=== PATIENT | female | born 1975 ===

== ENCOUNTER 2019-01-25 21:48 | Inpatient (IN) | payer OTHER ==
[~2019-01-25] VITALS: Ht 172.7 cm; Wt 89.8 kg
[2019-01-29] MEDS ORDERED: PANTOPRAZOLE SO40 MG PO (08:09)
[2019-01-29] MEDS ORDERED: CIPRO500 MG PO (08:09)
[2019-01-29] MEDS ORDERED: ACIDOPHILUS1 EAC5 PO (08:10)
== END 2019-01-29 13:35 | disposition home or self-care (01) | DRG 373 ==
LOC: ER 21:48 → MEDI 01-26 11:05 → SEC-K 01-26 11:05 → MEDI 01-26 13:31 → MEDJ 01-28 12:57 → MEDI 01-28 14:42
PROVIDERS: ADMIT Internal Medicine
PROC: BW21Y0Z Computerized Tomography (CT Scan) of Abdomen and Pelvis using Other Contrast, Unenhanced and Enhanced (ICD-10-PCS; principal; 2019-01-27)
PROC: 8E0ZXY6 Isolation (ICD-10-PCS; 2019-01-28)
DX: A02.0 Salmonella enteritis (principal); K52.89 Other specified noninfective gastroenteritis and colitis; E86.0 Dehydration; E87.8 Other disorders of electrolyte and fluid balance, not elsewhere classified; D72.828 Other elevated white blood cell count; K76.89 Other specified diseases of liver; K42.9 Umbilical hernia without obstruction or gangrene

== ENCOUNTER 2020-07-19 09:30 | Emergency (ER) | payer OTHER ==
[~2020-07-19] VITALS: Ht 172.7 cm; Wt 83.9 kg
[~2020-07-19 09:30] MED LIST: ACIDOPHILUS1 EAC5 PO; CIPRO500 MG PO; PANTOPRAZOLE SO40 MG PO
[2020-07-19] MEDS ORDERED: SYMBICORT 16010.2 GM (09:42)
[2020-07-19] MEDS ORDERED: RAYOS5 MG (09:42)
[2020-07-19] MEDS ORDERED: SINGULAIR10 MG (09:42)
[2020-07-19] MEDS ORDERED: ALLEGRA ALLERG180 MG (09:42)
== END 2020-07-19 16:04 | disposition home or self-care (01) ==
LOC: ER 09:30
DX: K52.89 Other specified noninfective gastroenteritis and colitis (principal); Z03.818 Encounter for observation for suspected exposure to other biological agents ruled out

== ENCOUNTER 2022-02-17 17:23 | Emergency (ER) | payer OTHER ==
[~2022-02-17] VITALS: Ht 172.7 cm; Wt 86.2 kg
[~2022-02-17 17:23] MED LIST changes: +ALLEGRA ALLERG180 MG; +RAYOS5 MG; +SINGULAIR10 MG; +SYMBICORT 16010.2 GM
[2022-02-17] MEDS ORDERED: AMOX-CLAV 875-1 EACH PO (17:47)
== END 2022-02-17 18:29 | disposition home or self-care (01) ==
LOC: ER
DX: S81.851A Open bite, right lower leg, initial encounter (principal); S51.851A Open bite of right forearm, initial encounter; W54.0XXA Bitten by dog, initial encounter; Y93.89 Activity, other specified; Y92.89 Other specified places as the place of occurrence of the external cause

== ENCOUNTER 2024-05-11 09:21 | Outpatient (CLI) | payer OTHER ==
[~2024-05-11 09:21] MED LIST changes: +AMOX-CLAV 875-1 EACH PO
== END 2024-05-11 09:24 | disposition home or self-care (01) ==
LOC: SONOGRAMA 09:21
PROVIDERS: ATTEND Pathology Anatomic Pathology & Clinical Pathology
DX: D34 Benign neoplasm of thyroid gland (principal); E07.89 Other specified disorders of thyroid; E04.2 Nontoxic multinodular goiter